=== PATIENT | male | born 1945 | race Caucasian/White ===

== ENCOUNTER 2020-11-09 12:45 | Inpatient (IN) ==
[2020-11-09 13:41] LABS: BASOPHILS # (AUTO) 0.1 X10^3/uL (0.0-0.1); BASOPHILS % (AUTO) 0.9 % (0.2-1.0); EOSINOPHILS % (AUTO) 0.3 % (0.9-2.9); HEMOGLOBIN 8.3 g/dL (13.5-18.0); LYMPHOCYTES # (AUTO) 3.3 X10^3/uL (1.3-2.9); MEAN CORPUSCULAR HEMOGLOBIN 33.8 pg (27.0-34.0); MEAN CORPUSCULAR HGB CONC 34.5 g/dL (33.0-35.0); MEAN PLATELET VOLUME 9.5 fL (7.4-11.0); MONOCYTES # (AUTO) 0.8 x10^3/uL (0.3-0.8); MONOCYTES % (AUTO) 7.7 % (0.0-13.0); NEUTROPHILS # (AUTO) 5.8 x10^3/uL (2.2-4.8); NEUTROPHILS % (AUTO) 58.1 % (42.0-75.0); PLATELET COUNT 183 X10^3/uL (150.0-450.0); RED BLOOD COUNT 2.45 X10^6/uL (4.7-6.0); RED CELL DISTRIBUTION WIDTH 14.7 % (11.6-16.5); WHITE BLOOD COUNT 9.9 X10^3/uL (3.6-10.0)
[2020-11-09 13:51] LABS: ALANINE AMINOTRANSFERASE 29 Units/L (12-78); ALBUMIN 3.4 g/dL (3.4-5.0); ALKALINE PHOSPHATASE 101 Units/L (46-116); ASPARTATE AMINO TRANSFERASE 20 Units/L (15-37); BLOOD UREA NITROGEN 40 mg/dL (7-18); CALCIUM 8.5 mg/dL (8.5-10.1); CARBON DIOXIDE 22.7 mmol/L (21-32); COR NA(FOR HYPERGLY) 149 mmol/L (136-145); CREATININE 1.32 mg/dL (0.70-1.30); SODIUM 148 mmol/L (136-145); TOTAL PROTEIN 5.9 g/dL (6.4-8.2); eGFR NON BLACK RACES 56 (>60)
[2020-11-09 13:55] LABS: CHLORIDE 115 mmol/L (98-107)
[2020-11-09] MEDS ORDERED: NS 1000 ML 1,000 ML IV ONE ×2 (13:58→16:32)
[2020-11-09] MEDS ORDERED: NS 100 ML IV 100 ML ONE (13:59)
[2020-11-09] MEDS ORDERED: NS 1000 ML 1,000 ML ONE ×2 (14:04→16:34)
[2020-11-09] MEDS ORDERED: ZOFRAN INJ 4 MG VIAL ONE (14:09)
[2020-11-09] MEDS ORDERED: ZOFRAN INJ 4 MG VIAL IVP ONE (14:16)
--- NOTE | 2020-11-09 14:24 | DR.ABDMALE ---
HPI Time seen Time Seen by Provider: 11/09/20 13:30 PCP Primary Care Physician: DR DICKINSON HPI comment HPI Comment: pt accompanied by family member. According to pt he has been experiencing pain in his left belly raea for over a montgh.was referred to GI.did have EGD and last week colonoscopy.pt had 2 polyps removed .was doing well.Pt does take asa and eliquis.however it was stopped during colonoscopy and started back 3 days after colonscopy.Pt did not have much a bowel movement after colonscopy except yesterday when he noticed dark stools .Family did call the GI .was advised as this was the first major bowel movement was to watch it and if it continues then they will order labs.Pt had similar bowel movement this morning and does feel tired .hence was brought to ER for evaluation Complaint Chief Complaint Doctors Comments: RECTAL BLEEDING Chief Complaint:: PT C/O RECTAL BLEEDING THAT STARTED YESTERDAY AND HAS PROGRESSIVELY WORSENED. PT NOTED BRIGHT RED BLOOD IN TOILET AND DARK TARRY STOOLS. PT ALSO C/O 1 MONTH HISTORY OF LEFT SIDED ABDOMINAL PAIN. PT HAD COLONOSCOPY LAST WEDNESDAY AND HAD POLYPS REMOVED. PT RESTARTED ELIQUIS AND ASPIRIN THREE DAYS AFTER PROCEDURE. COVID-19 Coronavirus risk:travel/contact w/high risk person: No Has patient experienced Coronavirus symptoms: No Reviewed Nurses Notes Review: Yes Mode of arrival Mode of Arrival: Ambulatory Timing Onset of Chief Complaint: 11/09/20 Came on: Gradually Duration Duration: Since Onset Duration: Days PMH PMH Past Medical History: Yes Past Medical History: Dyslipidemia and Hyperthyroidism Past Surgical History: Yes Surgical History: Appendectomy, CABG/Valve Surgery and Tonsillectomy Past Surgical History Comment: AORTIC VALVE REPLACED Family History History of Family Medical Conditions: Yes Family Medical History: Cancer, [place], Coronary Artery Disease and Heart Failure Social History Does patient currently use any type of tobacco product: No Have you used tobacco products in the last 12 months: No Type of Tobacco Use: None Does any household member use tobacco: No Alcohol Use: None Do you use any recreational Drugs:: No Lives With: Family Lives Where: Home Travel Risk Coronavirus risk:travel/contact w/high risk person: No Has patient experienced Coronavirus symptoms: No Infectious screening In the last 2 months have you had wt loss of >10#?: NO Have you had fever, night sweats or hemotysis?: No Have you traveled outside the country in the last 6 months?: No Isolation: Standard ROS Review of Systems Constitutional: See HPI Eyes: No Symptoms Reported ENTM: No Symptoms Reported Respiratoy: No Symptoms Reported Cardiovascular: No Symptoms Reported Gastrointestinal/Abdominal: See HPI Genitourinary: No Symptoms Reported Neurological: No Symptoms Reported Musculoskeletal: No Symptoms Reported Integumentary: No Symptoms Reported Hematologic/Lymphatic: See HPI PE Vital Signs Vital Signs: Temp Pulse Pulse Resp BP BP Pulse Ox 11/09/20 15:00 64 18 122/71 98 11/09/20 14:30 71 20 142/65 100 11/09/20 12:56 97.3 F L 79 24 120/59 96 10/31/20 09:31 120/60 General Limitations: No Limitations General Appearance: Alert and Anxious Eyes Eye exam: Normal Appearance, PERRL and Other (pallor) ENT ENT Exam: Normal Exam and Mucous Membranes Dry Neck Neck Exam: Normal Inspection and Full ROM Chest Chest Inspection: Normal Inspection Respiratory Respiratory Exam: Normal Lung Sounds Bilat Respiratory Exam: Bilateral: Clear to Auscultation Cardiovascular Cardiovascular Exam: +S1 and +S2 Abdominal Exam Abdominal Exam: Normal Inspection, Soft and Tenderness Abdominal Tenderness: Other (left flank tenderness ) Neurologic Neurological Exam: Alert MDM Additional Information Obtained From Additional Findings:: abdominal pain, emerald ,fatigue,pallor ,recent colonoscopy ,dehydration COURSE Treatment Treatment: cbc,cmp,IV fluids ,ct of abdomen and pelvis with contrast ROR Labs Reviewed Laboratory Results Reviewed?: Yes Result Diagrams: 11/09/20 13:25 11/09/20 13:25 Laboratory: WBC 9.9 X10^3/uL (3.6-10.0) 11/09/20 13:25 RBC 2.45 X10^6/uL (4.7-6.0) L 11/09/20 13:25 Hgb 8.3 g/dL (13.5-18.0) L 11/09/20 13:25 Hct 24.0 % (42.0-54.0) L 11/09/20 13:25 MCV 98.0 fL (80.0-100.0) 11/09/20 13:25 MCH 33.8 pg (27.0-34.0) 11/09/20 13:25 MCHC 34.5 g/dL (33.0-35.0) 11/09/20 13:25 RDW 14.7 % (11.6-16.5) 11/09/20 13:25 Plt Count 183 X10^3/uL (150.0-450.0) 11/09/20 13:25 MPV 9.5 fL (7.4-11.0) 11/09/20 13:25 Neut % (Auto) 58.1 % (42.0-75.0) 11/09/20 13:25 Lymph % (Auto) 33.0 % (21.0-51.0) 11/09/20 13:25 [place] % (Auto) 7.7 % (0.0-13.0) 11/09/20 13:25 Eos % (Auto) 0.3 % (0.9-2.9) L 11/09/20 13:25 Baso % (Auto) 0.9 % (0.2-1.0) 11/09/20 13:25 Neut # (Auto) 5.8 x10^3/uL (2.2-4.8) H 11/09/20 13:25 Lymph # (Auto) 3.3 X10^3/uL (1.3-2.9) H 11/09/20 13:25 [place] # (Auto) 0.8 x10^3/uL (0.3-0.8) 11/09/20 13:25 Eos # (Auto) 0.0 x10^3/uL (0.0-0.2) 11/09/20 13:25 Baso # (Auto) 0.1 X10^3/uL (0.0-0.1) 11/09/20 13:25 Absolute Nucleated RBC 0.1 /100WBC 11/09/20 13:25 Sodium 148 mmol/L (136-145) H 11/09/20 13:25 Corrected Sodium 149 mmol/L (136-145) H 11/09/20 13:25 Potassium 3.9 mmol/L (3.5-5.1) 11/09/20 13:25 Chloride 115 mmol/L (98-107) H* 11/09/20 13:25 Carbon Dioxide 22.7 mmol/L (21-32) 11/09/20 13:25 BUN 40 mg/dL (7-18) H 11/09/20 13:25 Creatinine 1.32 mg/dL (0.70-1.30) H 11/09/20 13:25 Est GFR (MDRD) Af Amer > 60 (>60) 11/09/20 13:25 Est GFR (MDRD) Non-Af 56 (>60) L 11/09/20 13:25 Glucose 127 mg/dL (65-99) H 11/09/20 13:25 Calcium 8.5 mg/dL (8.5-10.1) 11/09/20 13:25 Corrected Calcium TNP 11/09/20 13:25 Total Bilirubin 0.60 mg/dL (0.2-1.0) 11/09/20 13:25 AST 20 Units/L (15-37) 11/09/20 13:25 ALT 29 Units/L (12-78) 11/09/20 13:25 Alkaline Phosphatase 101 Units/L (46-116) 11/09/20 13:25 Total Protein 5.9 g/dL (6.4-8.2) L 11/09/20 13:25 Albumin 3.4 g/dL (3.4-5.0) 11/09/20 13:25 Globulin 2.5 g/dL (2.5-4.5) 11/09/20 13:25 Albumin/Globulin Ratio 1.4 Ratio (1.1-2.1) 11/09/20 13:25 SARS CoV-2 RNA Rapid LORIE Negative (NEGATIVE) 11/09/20 16:45 Opioid Opioid Risk Tool Age (Max box if 16-45): No History of Preadolescent Sexual Abuse: No Total: 0 Total Score Risk Category: Low Risk Copyright: Riky GREENWOOD predicting aberrant behaviors Diagnosis Discharge Problem: Acute lower GI bleeding, Acute on chronic kidney failure Anemia Qualifiers: Anemia type: unspecified type Qualified Code(s): D64.9 - Anemia, unspecified
--- NOTE | 2020-11-09 15:22 | CT ---
HISTORYPT C/O RECTAL BLEEDING THAT STARTED YESTERDAY AND HAS PROGRESSIVELY WORSENED. PT NOTED BRIGHT RED BLOOD IN TOILET AND DARK TARRY STOOLS. PT ALSO C/O 1 MONTH HISTORY OF LEFT SIDED ABDOMINAL PAIN. PT HAD COLONOSCOPY LAST THURSDAYSTUDYABDOMEN/PELVIS WITH CONCOMPARISONFebruary 2020TECHNIQUEAxial CT images of the abdomen and pelvis were obtained after the administration of IV contrast and reformatted into coronal and sagittal planes for further evaluation.Radiation dose: 623.70 mGy-cm total DLPFINDINGSLung bases are clear.Stomach appears normal.Solid visceral organs of the upper abdomen are unremarkable.Gallbladder appears normal with no biliary dilatation.Cyst in both kidneys.Otherwise, homogeneous enhancement of the kidneys without hydronephrosis or hydroureter.Atherosclerotic changes to the abdominal aorta and iliac vessels with evidence of a chronic aortic dissection and fusiform aneurysm up to 3 cm near the bifurcation.Unremarkable appearance of the urinary bladder.Imaged reproductive structures are unremarkable.Colonic diverticulosis without diverticulitis.Otherwise, unremarkable appearance of the large and small bowel.No evidence of acute appendicitis.No pneumoperitoneum.No significant fluid collection.No adenopathy.No acute osseous abnormality.Multilevel mild degenerative disc disease without vertebral body height loss.IMPRESSION1. No acute intra-abdominal abnormality detected.2. Colonic diverticulosis without diverticulitis.3. Chronic infrarenal abdominal aortic septations; consistent with a prior focal area of dissection. No current evidence of aortic dissection. Fusiform widening of the distal aorta up to 3 cm consistent with a small aneurysm.Electronically signed by: Nam Holder (Nov 09, 2020 15:20:17)
[2020-11-09 20:32] LABS: HEMATOCRIT 18.7 % (42.0-54.0); HEMOGLOBIN 6.5 g/dL (13.5-18.0)
[2020-11-09] MEDS: NS 1000 ML 1,000 ML IV SCH (21:50)
[2020-11-09] MEDS: TOPROL XL PO SCH (21:51)
[2020-11-09] MEDS: LIPITOR TAB 40 MG PO SCH (21:51)
[2020-11-09] MEDS ORDERED: TYLENOL 325 MG TAB PO PRN (22:54)
[2020-11-09] MEDS ORDERED: BENADRYL INJ 50 MG VIAL IVP PRN (22:54)
[2020-11-09] MEDS ORDERED: NS 500 ML IV 500 ML IV ONE ×2 (22:54→22:56)
[2020-11-09] MEDS ORDERED: TYLENOL 325 MG TAB PO ONE (22:57)
[2020-11-09] MEDS ORDERED: BENADRYL INJ 50 MG VIAL ONE (22:57)
[2020-11-10 00:02] VITALS: BMI 25.9
[2020-11-10 06:19] LABS: BASOPHILS % (AUTO) 0.9 % (0.2-1.0); EOSINOPHILS # (AUTO) 0.1 x10^3/uL (0.0-0.2); EOSINOPHILS % (AUTO) 1.3 % (0.9-2.9); HEMATOCRIT 22.7 % (42.0-54.0); HEMOGLOBIN 7.8 g/dL (13.5-18.0); LYMPHOCYTES # (AUTO) 1.9 X10^3/uL (1.3-2.9); MEAN CORPUSCULAR HEMOGLOBIN 32.8 pg (27.0-34.0); MEAN CORPUSCULAR HGB CONC 34.5 g/dL (33.0-35.0); MEAN CORPUSCULAR VOLUME 95.1 fL (80.0-100.0); MEAN PLATELET VOLUME 9.1 fL (7.4-11.0); MONOCYTES # (AUTO) 0.5 x10^3/uL (0.3-0.8); MONOCYTES % (AUTO) 10.2 % (0.0-13.0); NEUTROPHILS # (AUTO) 2.6 x10^3/uL (2.2-4.8); NEUTROPHILS % (AUTO) 50.6 % (42.0-75.0); PLATELET COUNT 123 X10^3/uL (150.0-450.0); RED BLOOD COUNT 2.38 X10^6/uL (4.7-6.0); RED CELL DISTRIBUTION WIDTH 15.1 % (11.6-16.5); WHITE BLOOD COUNT 5.1 X10^3/uL (3.6-10.0)
[2020-11-10 06:51] LABS: ALBUMIN 2.6 g/dL (3.4-5.0); CALCIUM 7.8 mg/dL (8.5-10.1); COR CA(FOR HYPOALB) 8.9 mg/dL (8.5-10.1); TOTAL PROTEIN 4.6 g/dL (6.4-8.2); eGFR NON BLACK RACES > 60 (>60)
[2020-11-10 07:08] LABS: ALANINE AMINOTRANSFERASE 18 Units/L (12-78); ALKALINE PHOSPHATASE 77 Units/L (46-116); ASPARTATE AMINO TRANSFERASE 21 Units/L (15-37); BLOOD UREA NITROGEN 28 mg/dL (7-18); CREATININE 1.05 mg/dL (0.70-1.30)
[2020-11-10 07:11] LABS: CHLORIDE 120 mmol/L (98-107); SODIUM 151 mmol/L (136-145)
[2020-11-10] MEDS: CORDARONE TAB 200 MG PO SCH (09:13)
[2020-11-10] MEDS: NORVASC TAB 10 MG PO SCH (09:13)
[2020-11-10] MEDS: NS 1000 ML 1,000 ML IV SCH (09:14)
[2020-11-10] MEDS ORDERED: NS 1/2 1000 ML IV 1,000 ML IV ONE ×2 (12:06→19:13)
[2020-11-10] MEDS: NS 1/2 1000 ML IV 1,000 ML IV SCH ×2 (12:09→20:33)
--- NOTE | 2020-11-10 12:19 | DR.H&P ---
H&P History & Physical for Day of: H&P Date: 11/10/20 Chief Complaint Chief Complaint: bloody stools Allergies Allergies Allergy/AdvReac Type Severity Reaction Status Date / Time No Known Drug Allergies Allergy Verified 11/09/20 14:15 History of Present Illness History of Present Illness: Reported to ER after developing bloody stools two days prior; he had colonoscopy a week ago and two polyps were removed; he remained off eliquis and aspirin for ten days and restarted the day prior to the bleeding; his son reports two weeks prior, pt's had a stroke and was transported to [place] where the pt had been staying day in and day out; he still has a poor appetite and anxiety related to this and lost weight in the past two weeks but not prior; colonoscopy and egd were both done because of llq discomfort which persists; he has recently developed a lot of gas "upper and lower" which he passes via "both ends". PMH: Cad, htn PSH: CABG and valve repair, appendectomy SH: quit both cigs and etoh years ago Past Medical History Past Medical History: Dyslipidemia and Hyperthyroidism Past Surgical History Surgical History: Appendectomy, CABG/Valve Surgery and Tonsillectomy Family History Family Medical History: Cancer, [place], Coronary Artery Disease and Heart Failure Social History Does patient currently use any type of tobacco product: No Have you used tobacco products in the last 12 months: No Type of Tobacco Use: None Does any household member use tobacco: No Alcohol Use: None Drug Use: None Medications Home Medications: No Known Drug Allergies Allergy (Verified 11/09/20 14:15) CONTINUE taking the following medications amiodarone 100 mg PO DAILY 11/09/20 [History] amlodipine 10 mg PO DAILY 11/09/20 [History] apixaban [Eliquis] 5 mg PO BID 11/09/20 [History] aspirin 81 mg PO DAILY 11/09/20 [History] atorvastatin 40 mg PO HS 11/09/20 [History] hydrochlorothiazide 12.5 mg PO DAILY 11/09/20 [History] metoprolol succinate 25 mg PO HS 11/09/20 [History] Labs Result Diagrams: 11/10/20 06:03 11/10/20 06:03 Labs: Laboratory WBC 5.1 X10^3/uL (3.6-10.0) 11/10/20 06:03 RBC 2.38 X10^6/uL (4.7-6.0) L 11/10/20 06:03 Hgb 7.8 g/dL (13.5-18.0) L 11/10/20 06:03 Hct 22.7 % (42.0-54.0) L 11/10/20 06:03 MCV 95.1 fL (80.0-100.0) 11/10/20 06:03 MCH 32.8 pg (27.0-34.0) 11/10/20 06:03 MCHC 34.5 g/dL (33.0-35.0) 11/10/20 06:03 RDW 15.1 % (11.6-16.5) 11/10/20 06:03 Plt Count 123 X10^3/uL (150.0-450.0) L 11/10/20 06:03 MPV 9.1 fL (7.4-11.0) 11/10/20 06:03 Neut % (Auto) 50.6 % (42.0-75.0) 11/10/20 06:03 Lymph % (Auto) 37.0 % (21.0-51.0) 11/10/20 06:03 [place] % (Auto) 10.2 % (0.0-13.0) 11/10/20 06:03 Eos % (Auto) 1.3 % (0.9-2.9) 11/10/20 06:03 Baso % (Auto) 0.9 % (0.2-1.0) 11/10/20 06:03 Neut # (Auto) 2.6 x10^3/uL (2.2-4.8) 11/10/20 06:03 Lymph # (Auto) 1.9 X10^3/uL (1.3-2.9) 11/10/20 06:03 [place] # (Auto) 0.5 x10^3/uL (0.3-0.8) 11/10/20 06:03 Eos # (Auto) 0.1 x10^3/uL (0.0-0.2) 11/10/20 06:03 Baso # (Auto) 0.0 X10^3/uL (0.0-0.1) 11/10/20 06:03 Absolute Nucleated RBC 0.1 /100WBC 11/10/20 06:03 Sodium 151 mmol/L (136-145) H* 11/10/20 06:03 Corrected Sodium TNP 11/10/20 06:03 Potassium 3.6 mmol/L (3.5-5.1) 11/10/20 06:03 Chloride 120 mmol/L (98-107) H* 11/10/20 06:03 Carbon Dioxide 20.0 mmol/L (21-32) L 11/10/20 06:03 BUN 28 mg/dL (7-18) H 11/10/20 06:03 Creatinine 1.05 mg/dL (0.70-1.30) 11/10/20 06:03 Est GFR (MDRD) Af Amer > 60 (>60) 11/10/20 06:03 Est GFR (MDRD) Non-Af > 60 (>60) 11/10/20 06:03 Glucose 85 mg/dL (65-99) 11/10/20 06:03 POC Glucose (mg/dL) 85 mg/dL (65-99) 11/10/20 11:44 Calcium 7.8 mg/dL (8.5-10.1) L 11/10/20 06:03 Corrected Calcium 8.9 mg/dL (8.5-10.1) 11/10/20 06:03 Total Bilirubin 0.60 mg/dL (0.2-1.0) 11/10/20 06:03 AST 21 Units/L (15-37) 11/10/20 06:03 ALT 18 Units/L (12-78) 11/10/20 06:03 Alkaline Phosphatase 77 Units/L (46-116) 11/10/20 06:03 Total Protein 4.6 g/dL (6.4-8.2) L 11/10/20 06:03 Albumin 2.6 g/dL (3.4-5.0) L 11/10/20 06:03 Globulin 2.0 g/dL (2.5-4.5) L 11/10/20 06:03 Albumin/Globulin Ratio 1.3 Ratio (1.1-2.1) 11/10/20 06:03 SARS CoV-2 RNA Rapid LORIE Negative (NEGATIVE) 11/09/20 16:45 Blood Type O POSITIVE 11/09/20 21:00 Antibody Screen Negative 11/09/20 21:00 Crossmatch See Detail 11/09/20 21:00 CT abd/pelvis: 1. No acute intra-abdominal abnormality detected. 2. Colonic diverticulosis without diverticulitis. 3. Chronic infrarenal abdominal aortic septations; consistent with a prior focal area of dissection. No current evidence of aortic dissection. Fusiform widening of the distal aorta up to 3 cm consistent with a small aneurysm. 10/31/20 Colonoscopy: Colon polyps, pandiverticulosis, internal hemorrhoids, and melanosis coli 10/31/20 path: hyperplastic x 2, adenoma x 1 10/10/20 EGD: Distal esophagitis and erosive gastritis. Review of Systems Constitutional: See HPI and [place] ENT: No Symptoms Reported Respiratory: No Symptoms Reported Cardiovascular: No Symptoms Reported Gastrointestinal: See HPI and Abdominal Pain Genitourinary: No Symptoms Reported Musculoskeletal: No Symptoms Reported Skin: No Symptoms Reported Neurological: No Symptoms Reported Physical Exam Vital Signs: Temperature 98.0 F Pulse Rate [Left] 54 Pulse Rate 79 Respiratory Rate 18 Blood Pressure [Left Arm] 111/56 Blood Pressure 120/59 O2 Sat by Pulse Oximetry 96 Oriented: Normal, Time, Person and Place Eyes: Normal Ear: Normal Respiratory: Clear Throughout Cardiovascular: Normal Auscultation: Bowel Sounds: Normal Tenderness: LLQ and Mild Skin: Decreased Turgur and Other (thin, decreased turgor) Affect: Normal Speech Pattern: Clear and Appropriate Assessment/Plan (1) Acute lower GI bleeding: Status: Acute Plan: S/P polypectomy 10/31; remained off eliquis and aspirin x 10 days; bleeding started after two doses of eliquis; hgb up to 7.8 after 2u prbc; no more bleeding overnight; will need gi evaluation; continue to monitor hb and transfuse prn. (2) Anemia: Qualifiers: Anemia type: unspecified type Qualified Code(s): D64.9 - Anemia, unspecified Status: Acute Plan: As above. (3) Hypernatremia: Status: Acute Plan: Sodium up to 151; worsened by dehydration; add fluids, po intake and follow. (4) Hypotension: Qualifiers: Hypotension type: hypotension due to hypovolemia Qualified Code(s): I95.89 - Other hypotension; E86.1 - Hypovolemia Status: Acute Plan: Resolved with blood and fluids; follow. (5) Esophagitis: Status: Acute (6) Erosive gastritis: Status: Acute Plan: S/P EGD earlier this month; gi to follow as above. (7) Hyperplastic polyp of large intestine: Status: Acute (8) Adenomatous colon polyp: Qualifiers: Colon location: transverse Qualified Code(s): D12.3 - Benign neoplasm of transverse colon Status: Acute (9) LLQ abdominal pain: Status: Acute Plan: Etiology uncertain; fup with GI. (10) AAA (abdominal aortic aneurysm): Qualifiers: Presence of rupture: without rupture Qualified Code(s): I71.4 - Abdominal aortic aneurysm, without rupture Status: Acute Plan: 3.2cm per CT; follow as outpt. (11) CAD (coronary artery disease): Qualifiers: Coronary Disease-Associated Artery/Lesion type: [place] artery [place] vs. transplanted heart: [place] heart Associated angina: without angina Qualified Code(s): I25.10 - Atherosclerotic heart disease of [place] coronary artery without angina pectoris Status: Acute Plan: Asymptomatic; remain off eliquis due to GIB. (12) Hyperlipidemia, mixed: Status: Acute (13) Thrombocytopenia due to blood loss: Status: Acute Plan: Follow. Review H&P Reviewed: Yes Patient was examined?: Yes
[2020-11-10 19:00] LABS: HEMATOCRIT 22.7 % (42.0-54.0); HEMOGLOBIN 7.9 g/dL (13.5-18.0)
[2020-11-10] MEDS: LIPITOR TAB 40 MG PO SCH (20:31)
[2020-11-10] MEDS: RESTORIL CAP 15 MG PO PRN (21:30)
[2020-11-11] MEDS: TOPROL XL PO SCH ×2 (00:50→22:18)
[2020-11-11] MEDS ORDERED: NS 1/2 1000 ML IV 1,000 ML IV ONE (03:03)
[2020-11-11] MEDS: NS 1/2 1000 ML IV 1,000 ML IV SCH ×3 (05:03→22:17)
[2020-11-11 05:19] LABS: BASOPHILS % (AUTO) 0.7 % (0.2-1.0); EOSINOPHILS # (AUTO) 0.1 x10^3/uL (0.0-0.2); EOSINOPHILS % (AUTO) 2.2 % (0.9-2.9); HEMATOCRIT 22.5 % (42.0-54.0); HEMOGLOBIN 7.8 g/dL (13.5-18.0); LYMPHOCYTES # (AUTO) 1.3 X10^3/uL (1.3-2.9); LYMPHOCYTES % (AUTO) 28.5 % (21.0-51.0); MEAN CORPUSCULAR HGB CONC 34.6 g/dL (33.0-35.0); MEAN CORPUSCULAR VOLUME 95.4 fL (80.0-100.0); MEAN PLATELET VOLUME 8.9 fL (7.4-11.0); MONOCYTES # (AUTO) 0.5 x10^3/uL (0.3-0.8); MONOCYTES % (AUTO) 10.6 % (0.0-13.0); NEUTROPHILS # (AUTO) 2.7 x10^3/uL (2.2-4.8); PLATELET COUNT 125 X10^3/uL (150.0-450.0); RED BLOOD COUNT 2.36 X10^6/uL (4.7-6.0); RED CELL DISTRIBUTION WIDTH 15.2 % (11.6-16.5); WHITE BLOOD COUNT 4.7 X10^3/uL (3.6-10.0)
[2020-11-11 05:33] LABS: ALANINE AMINOTRANSFERASE 25 Units/L (12-78); ALBUMIN 2.6 g/dL (3.4-5.0); ALKALINE PHOSPHATASE 77 Units/L (46-116); ASPARTATE AMINO TRANSFERASE 23 Units/L (15-37); BLOOD UREA NITROGEN 14 mg/dL (7-18); CALCIUM 7.5 mg/dL (8.5-10.1); CARBON DIOXIDE 21.7 mmol/L (21-32); COR CA(FOR HYPOALB) 8.6 mg/dL (8.5-10.1); CREATININE 0.92 mg/dL (0.70-1.30); SODIUM 147 mmol/L (136-145); TOTAL PROTEIN 4.6 g/dL (6.4-8.2); eGFR NON BLACK RACES > 60 (>60)
[2020-11-11 05:35] LABS: CHLORIDE 117 mmol/L (98-107)
[2020-11-11] MEDS ORDERED: POTASSIUM CHLORIDE LIQ 20 MEQ UDC PO PRN (05:38)
[2020-11-11] MEDS ORDERED: KLOR-CON PO PRN (05:38)
[2020-11-11] MEDS ORDERED: MICRO K EXTEN CAP 10 MEQ PO PRN (05:38)
[2020-11-11] MEDS ORDERED: K-DUR TAB 20 MEQ PO PRN (05:38)
[2020-11-11] MEDS ORDERED: POTASSIUM CHL 40 MEQ/NS 0.45% 500 ML IV PRN (05:38)
[2020-11-11] MEDS ORDERED: K-RIDER 10 MEQ/NS 100 ML 10 MEQ/100 ML BAG IV PRN (05:38)
[2020-11-11] MEDS ORDERED: POTASSIUM CHL 60 MEQ/NS 0.45% 500 ML IV PRN (05:38)
[2020-11-11] MEDS: MAGNESIUM SULFATE 1 GRAM/100 mL PREMIX 1 GM/100 ML BAG IV PRN ×2 (06:41→09:04)
[2020-11-11] MEDS: CORDARONE TAB 200 MG PO SCH (09:10)
[2020-11-11] MEDS ORDERED: TYLENOL 325 MG TAB PO ONE ×2 (10:36→13:39)
[2020-11-11] MEDS ORDERED: BENADRYL INJ 50 MG VIAL IVP ONE (10:36)
[2020-11-11] MEDS ORDERED: BENADRYL INJ 50 MG VIAL ONE (13:39)
[2020-11-11] MEDS: PEPCID 20 MG IV PREMIX* 20 MG/50 ML BAG IV SCH ×2 (13:44→20:42)
[2020-11-11] MEDS: PROTONIX INJ 40 MG VIAL IVP SCH ×2 (13:44→21:50)
[2020-11-11] MEDS: LEVSIN/MAALOX/LIDOC VISC PO SCH ×4 (13:45→20:40)
[2020-11-11] MEDS: ELIQUIS PO SCH (13:47)
[2020-11-11] MEDS: NORVASC TAB 10 MG PO SCH (13:51)
[2020-11-11] MEDS ORDERED: NS 500 ML IV 500 ML IV ONE (14:05)
--- NOTE | 2020-11-11 20:33 | DR.CONSULT ---
Consult - Consultation for Day of: Date: 11/11/20 - Chief Complaint Chief Complaint: Patient referred for hematochezia s/p colon on with polypectomy on 10/31. Patient with complaints of hematochezia - History of Present Illness History of Present Illness: Patient is a 74 yo male who was referred for hematochezia s/p colon on with polypectomy on 10/31. Patient with complaints of hematochezia that started on wednesday 3 episodes wednesday am, 3 wednesday PM, x1 Sat AM, x2 episodes wednesday PM. Has not had another BM since wednesday and has not had anymore bleeding since then. Patient on eliquis and ASA resumed on Wednesday. Patient denies dysphagia, dyspepsia, nausea, vomiting, abdominal pain, constipation, diarrhea and melena. Last Colon was 10/31/20 showed internal hemorrhoids, Christopher diverticulosis, melanosis coli, x2 tubular adenomatous colon polyps, x2 hyperplastic colon polyps. Last EGD was 10/10/20 which showed distal esophagitis and erosive gastritis. Hgb 7.8 up from 6.8 after 1 unit of PRBC, Hct 27.5, Plt 125, BUN 14, Creatinine 0.92, T. Bili 0.7, AST23, ALT 25, ALP 77 - Past Medical History Past Medical History: Dyslipidemia, Hyperthyroidism - Past Surgical History Surgical History: Appendectomy, CABG/Valve Surgery, Tonsillectomy - Family History Family Medical History: Cancer, [place], Coronary Artery Disease, Heart Failure - Social History Does patient currently use any type of tobacco product: No Have you used tobacco products in the last 12 months: No Type of Tobacco Use: None Does any household member use tobacco: No Alcohol Use: None Drug Use: None - Medications Home Medications: No Known Drug Allergies Allergy (Verified 11/09/20 14:15) CONTINUE taking the following medications amiodarone 100 mg PO DAILY 11/09/20 [History] amlodipine 10 mg PO DAILY 11/09/20 [History] apixaban [Eliquis] 5 mg PO BID 11/09/20 [History] aspirin 81 mg PO DAILY 11/09/20 [History] atorvastatin 40 mg PO HS 11/09/20 [History] hydrochlorothiazide 12.5 mg PO DAILY 11/09/20 [History] metoprolol succinate 25 mg PO HS 11/09/20 [History] - Review of Systems Gastrointestinal: Hematochezia. denies: Nausea, Vomiting, Abdominal Pain, Diarrhea, Constipation, Melena - Physical Exam Vital Signs: Temperature 98.5 F Pulse Rate [Left] 59 Pulse Rate 79 Respiratory Rate 18 Blood Pressure [Left Arm] 135/69 Blood Pressure 120/59 O2 Sat by Pulse Oximetry 97 Oriented: Normal Eyes: Normal Ear: Normal Nose: Normal Throat: Normal Respiratory: Clear Throughout Cardiovascular: Normal Auscultation: Bowel Sounds: Normal Palpation: Normal, Other (no distention). negative: Spleen Enlarged, Liver Enlarged, Mass Pulsatile Tenderness: Normal (non tender) Skin: Normal Musculoskeletal: Normal Psychiatric: Normal Mood Description: Calm Affect: Normal Speech Pattern: Clear, Appropriate - Plan Plan: Assessment. 1. Hematochezia. 2. GERD. 3. Diverticulosis. Plan. 1. Monitor Hgb, Transfuse as needed, Anusol Supp BID. Plan reviewed with Dr. Barone - Allergies Allergies/Adverse Reactions: Allergies Allergy/AdvReac Type Severity Reaction Status Date / Time No Known Drug Allergies Allergy Verified 11/09/20 14:15
[2020-11-11] MEDS: LIPITOR TAB 40 MG PO SCH (20:40)
[2020-11-11] MEDS: RESTORIL CAP 15 MG PO PRN (21:47)
[2020-11-11] MEDS: ANUCORT-HC SUPP PR SCH (21:50)
[2020-11-11 21:57] LABS: HEMATOCRIT 28.2 % (42.0-54.0); HEMOGLOBIN 9.7 g/dL (13.5-18.0)
[2020-11-12] MEDS: NS 1/2 1000 ML IV 1,000 ML IV SCH (03:45)
[2020-11-12] MEDS ORDERED: NS 1/2 1000 ML IV 1,000 ML IV ONE (04:15)
[2020-11-12 05:08] LABS: BASOPHILS % (AUTO) 0.8 % (0.2-1.0); EOSINOPHILS # (AUTO) 0.1 x10^3/uL (0.0-0.2); EOSINOPHILS % (AUTO) 1.6 % (0.9-2.9); HEMATOCRIT 27.9 % (42.0-54.0); HEMOGLOBIN 9.7 g/dL (13.5-18.0); LYMPHOCYTES % (AUTO) 23.7 % (21.0-51.0); MEAN CORPUSCULAR HEMOGLOBIN 31.5 pg (27.0-34.0); MEAN CORPUSCULAR HGB CONC 34.7 g/dL (33.0-35.0); MEAN CORPUSCULAR VOLUME 90.8 fL (80.0-100.0); MONOCYTES # (AUTO) 0.4 x10^3/uL (0.3-0.8); MONOCYTES % (AUTO) 9.3 % (0.0-13.0); NEUTROPHILS # (AUTO) 2.8 x10^3/uL (2.2-4.8); NEUTROPHILS % (AUTO) 64.6 % (42.0-75.0); PLATELET COUNT 119 X10^3/uL (150.0-450.0); RED BLOOD COUNT 3.07 X10^6/uL (4.7-6.0); WHITE BLOOD COUNT 4.4 X10^3/uL (3.6-10.0)
[2020-11-12 05:23] LABS: ALANINE AMINOTRANSFERASE 19 Units/L (12-78); ALBUMIN 2.6 g/dL (3.4-5.0); ALKALINE PHOSPHATASE 85 Units/L (46-116); ASPARTATE AMINO TRANSFERASE 20 Units/L (15-37); BLOOD UREA NITROGEN 8 mg/dL (7-18); CALCIUM 7.5 mg/dL (8.5-10.1); COR CA(FOR HYPOALB) 8.6 mg/dL (8.5-10.1); CREATININE 0.95 mg/dL (0.70-1.30); MAGNESIUM 1.9 mg/dL (1.7-2.9); SODIUM 146 mmol/L (136-145); TOTAL PROTEIN 4.7 g/dL (6.4-8.2); eGFR NON BLACK RACES > 60 (>60)
[2020-11-12 05:27] LABS: CHLORIDE 117 mmol/L (98-107)
[2020-11-12] MEDS: PEPCID 20 MG IV PREMIX* 20 MG/50 ML BAG IV SCH (08:46)
[2020-11-12] MEDS: LEVSIN/MAALOX/LIDOC VISC PO SCH (08:46)
[2020-11-12] MEDS: PROTONIX INJ 40 MG VIAL IVP SCH (08:47)
[2020-11-12] MEDS: NORVASC TAB 10 MG PO SCH (08:47)
[2020-11-12] MEDS: CORDARONE TAB 200 MG PO SCH (08:47)
[2020-11-12] MEDS: ELIQUIS PO SCH (08:48)
[2020-11-12] MEDS: ANUCORT-HC SUPP PR SCH (08:49)
[2020-11-12 08:50] VITALS: BP 175/76
--- NOTE | 2020-11-12 10:27 | PCM.PROG ---
Progress Note - Progress Note for Day of Date of Exam: 11/11/20 - Subjective Subjective: WAS ADMITTED ON 11/09 DUE TO AN UPPER GI BLEED, ANEMIA, AND DEHYDRATION. PATIENT REPORTEDLY HAD A COLONOSCOPY WITH TWO POLYPS REMOVED ALMOST TWO WEEKS AGO. PMH INCLUDES CAD, ANEURYSM, HTN, CABG, VALVE REPAIR, AND APPENDECTOMY. HE RECEIVED TWO UNITS OF PACKED RED BLOOD CELLS SINCE ADMISSION. TODAY, HE IS ALERT AND ORIENTED, LYING IN BED ON MORNING ROUNDS. HE CONTINUES WITH COMPLAINTS OF WEAKNESS. HE ALSO REPORTS LOWER ABDOMEN CRAMPING. ON EXAMINATION, HEART IS REGULAR IN RATE AND RHYTHM. BILATERAL LUNGS ARE CLEAR TO AUSCULTATION. ABDOMEN IS ROUND, SOFT, AND NOTED WITH LEFT LOWER QUADRANT TENDERNESS. HIS VITALS THIS MORNING ARE: 98.3-56-18-94%-128/61. LABS WERE OBTAINED. ABNORMAL LAB VALUES INCLUDE THE FOLLOWING: RBC 2.36, HGB 7.8, HCT 22.5, PLT COUNT 125, SODIUM 147, POTASSIUM 3.2, CHLORIDE 117, CALCIUM 7.5, TOTAL PROTEIN 4.6, ALBUMIN 2.6. HE IS CURRENTLY RECEIVING 1/2NS AT 100 ML/HR, THE POTASSIUM AND MAGNESIUM PROTOCOLS, AND HIS HOME MEDICATIONS WERE RESUMED. WE JOSÉ LUIS L DECREASE THE ELIQUIS TO 2.5MG PO DAILY, DISCONTINUE THE ASPIRIN. WE WILL ADD PEPCID 20MG IV BID, PROTONIX 40MG IV BID, AND GI COCKTAIL 15ML PO QID. WE WILL ALSO TRANSFUSE TWO ADDITIONAL UNITS OF PRBC. WE WILL CONSULT WITH . OTHERWISE, WE PLAN TO FOLLOW UP WITH AM LABS AND CONTINUE TO MONITOR. TIME SPENT ON CLINICAL ASSESSMENT, REVIEWING LABS AND IMAGING, DECISION MAKING, AND DOCUMENTATION GREATER THAN 45 ML/HR. - Past Medical Family Social History Past Med/Fam/Surg Hx: No changes since H&P Allergies: Allergies No Known Drug Allergies Allergy (Verified 11/09/20 14:15) - Review of Systems ROS: No change since H&P - Vital Signs and I&O's Vital Signs: Temperature 98.7 F Pulse Rate [Left] 66 Pulse Rate 79 Respiratory Rate 20 Blood Pressure [Left Arm] 175/76 Blood Pressure 120/59 O2 Sat by Pulse Oximetry 97 Intake and Output: Intake & Output 11/09/20 11/10/20 11/11/20 11/12/20 11:59 11:59 11:59 11:59 Intake Total 400 / 400 1496 / 1496 2974 / 2974 Output Total 400 / 400 1600 / 1600 300 / 300 Balance 0 / 0 -104 / -104 2674 / 2674 - Physical Exam Oriented: Normal Eyes: Normal Ear: Normal Nose: Normal Throat: Normal Respiratory: Normal Cardiovascular: Normal : Normal Auscultation: Bowel Sounds: Normal Palpation: Normal Tenderness: Normal (non tender) Skin: Normal Musculoskeletal: Normal Psychiatric: Normal Mood Description: Calm Affect: Normal Speech Pattern: Clear - Laboratory and Diagnostics Result Diagrams: 11/12/20 04:05 11/12/20 04:05 Labs: Laboratory WBC 4.4 X10^3/uL (3.6-10.0) 11/12/20 04:05 RBC 3.07 X10^6/uL (4.7-6.0) L 11/12/20 04:05 Hgb 9.7 g/dL (13.5-18.0) L 11/12/20 04:05 Hct 27.9 % (42.0-54.0) L 11/12/20 04:05 MCV 90.8 fL (80.0-100.0) 11/12/20 04:05 MCH 31.5 pg (27.0-34.0) 11/12/20 04:05 MCHC 34.7 g/dL (33.0-35.0) 11/12/20 04:05 RDW 19.0 % (11.6-16.5) H 11/12/20 04:05 Plt Count 119 X10^3/uL (150.0-450.0) L 11/12/20 04:05 MPV 9.0 fL (7.4-11.0) 11/12/20 04:05 Neut % (Auto) 64.6 % (42.0-75.0) 11/12/20 04:05 Lymph % (Auto) 23.7 % (21.0-51.0) 11/12/20 04:05 Mower % (Auto) 9.3 % (0.0-13.0) 11/12/20 04:05 Eos % (Auto) 1.6 % (0.9-2.9) 11/12/20 04:05 Baso % (Auto) 0.8 % (0.2-1.0) 11/12/20 04:05 Neut # (Auto) 2.8 x10^3/uL (2.2-4.8) 11/12/20 04:05 Lymph # (Auto) 1.0 X10^3/uL (1.3-2.9) L 11/12/20 04:05 Mower # (Auto) 0.4 x10^3/uL (0.3-0.8) 11/12/20 04:05 Eos # (Auto) 0.1 x10^3/uL (0.0-0.2) 11/12/20 04:05 Baso # (Auto) 0.0 X10^3/uL (0.0-0.1) 11/12/20 04:05 Absolute Nucleated RBC 0.1 /100WBC 11/12/20 04:05 Sodium 146 mmol/L (136-145) H 11/12/20 04:05 Corrected Sodium TNP 11/12/20 04:05 Potassium 4.1 mmol/L (3.5-5.1) 11/12/20 04:05 Chloride 117 mmol/L (98-107) H* 11/12/20 04:05 Carbon Dioxide 22.0 mmol/L (21-32) 11/12/20 04:05 BUN 8 mg/dL (7-18) 11/12/20 04:05 Creatinine 0.95 mg/dL (0.70-1.30) 11/12/20 04:05 Est GFR (MDRD) Af Amer > 60 (>60) 11/12/20 04:05 Est GFR (MDRD) Non-Af > 60 (>60) 11/12/20 04:05 Glucose 104 mg/dL (65-99) H 11/12/20 04:05 POC Glucose (mg/dL) 85 mg/dL (65-99) 11/10/20 11:44 Calcium 7.5 mg/dL (8.5-10.1) L 11/12/20 04:05 Corrected Calcium 8.6 mg/dL (8.5-10.1) 11/12/20 04:05 Magnesium 1.9 mg/dL (1.7-2.9) 11/12/20 04:05 Total Bilirubin 0.50 mg/dL (0.2-1.0) 11/12/20 04:05 AST 20 Units/L (15-37) 11/12/20 04:05 ALT 19 Units/L (12-78) 11/12/20 04:05 Alkaline Phosphatase 85 Units/L (46-116) 11/12/20 04:05 Total Protein 4.7 g/dL (6.4-8.2) L 11/12/20 04:05 Albumin 2.6 g/dL (3.4-5.0) L 11/12/20 04:05 Globulin 2.1 g/dL (2.5-4.5) L 11/12/20 04:05 Albumin/Globulin Ratio 1.2 Ratio (1.1-2.1) 11/12/20 04:05 SARS CoV-2 RNA Rapid LORIE Negative (NEGATIVE) 11/09/20 16:45 Blood Type O POSITIVE 11/09/20 21:00 Antibody Screen Negative 11/09/20 21:00 Crossmatch See Detail 11/09/20 21:00 - Plan (1) GI bleed Status: Acute Qualifiers: GI bleed type/associated pathology: unspecified gastrointestinal hemorrhage type Qualified Code(s): K92.2 - Gastrointestinal hemorrhage, unspecified (2) Anemia Status: Acute Qualifiers: Anemia type: unspecified type Qualified Code(s): D64.9 - Anemia, unspecified Plan: TRANSFUSE 2 UNITS PRBC (3) LLQ abdominal pain Status: Acute Plan: Etiology uncertain; fup with GI. (4) Thrombocytopenia due to blood loss Status: Acute Plan: Follow.
[2020-11-12] MEDS ORDERED: COLACE CAP 100 MG PO SCH (21:00)
[2020-11-12] MEDS ORDERED: MILK OF MAGNESIA PO SCH (21:00)
== END 2020-11-12 11:15 | disposition home or self-care (01) | DRG 378 ==
LOC: MED/SURG 12:54 → ER 12:54 → OBSVTOIN 20:30 → MED/SURG 20:40
PROVIDERS: ADMIT Internal Medicine; ATTEND Internal Medicine